=== PATIENT | female | born 1995 | race Caucasian/White ===

== ENCOUNTER 2021-05-05 08:00 | Outpatient (CLI) | payer BC ==
[2021-05-05 23:08] LABS: CHLAMYDIA TRACHOMATIS DNA NEGATIVE (NEGATIVE); NEISSERIA GONORRHOEAE DNA NEGATIVE (NEGATIVE); TRICHOMONAS VAGINALIS DNA NEGATIVE (NEGATIVE)
== END 2021-05-05 23:59 ==
LOC: LAB 08:00
PROVIDERS: ATTEND Physician Assistant Medical
DX: Z20.2 Contact with and (suspected) exposure to infections with a predominantly sexual mode of transmission (principal)
CPT/HCPCS: 87491; 87591; 87661